=== PATIENT | female | born 1960 | race Caucasian/White ===

== ENCOUNTER 2016-07-28 06:00 | Day surgery (SDC) | payer MEDICARE ==
[2016-07-14 14:46] VITALS: BP 109/77
[~2016-07-28] VITALS: Ht 160 cm; Wt 143.0 kg
[~2016-07-28 06:00] MED LIST: ASPI-515 PO; BUPR-173 PO; CITA10TA4 PO; CLON-364 PO; FURO20TA3 PO; GABA600T2 PO; GLIM4TAB2 PO; HYDR25TA6 PO; INSU100V13 SC; LEVO50TA5 PO; LINA5TAB PO; LISI1TAB5; LISI2.5T PO; METF10002 PO; OXYC10TA6 PO; PENI500T; POTA20TA89 PO; ZOLP10TA; ZOLP10TA PO
[2016-07-28] MEDS ORDERED: LACTATED RINGERS 1,000 ML IV SCH (07:11)
[2016-07-28 07:16] VITALS: BP 109/77
[2016-07-28] MEDS ORDERED: MIDAZOLAM 1 MG/ML, 2ML ONE (08:10)
[2016-07-28] MEDS ORDERED: PROPOFOL 10 MG/ML, 20ML ONE (08:14)
== END 2016-07-28 10:30 | disposition home or self-care (01) ==
LOC: OR 06:00 → OUT 10:30
PROVIDERS: ATTEND Internal Medicine Gastroenterology
DX: D12.4 Benign neoplasm of descending colon (principal); D12.5 Benign neoplasm of sigmoid colon; K63.5 Polyp of colon; E66.01 Morbid (severe) obesity due to excess calories; Z68.43 Body mass index [BMI] 50.0-59.9, adult; E11.40 Type 2 diabetes mellitus with diabetic neuropathy, unspecified; Z85.42 Personal history of malignant neoplasm of other parts of uterus; Z85.038 Personal history of other malignant neoplasm of large intestine; G47.33 Obstructive sleep apnea (adult) (pediatric); I10 Essential (primary) hypertension; Z87.891 Personal history of nicotine dependence; F41.9 Anxiety disorder, unspecified; F32.9 Major depressive disorder, single episode, unspecified; Z90.710 Acquired absence of both cervix and uterus; Z90.49 Acquired absence of other specified parts of digestive tract; E03.9 Hypothyroidism, unspecified; Z79.4 Long term (current) use of insulin
CPT/HCPCS: 45385; 82962; 88305; J2250; J2704; J7120

== ENCOUNTER → 2016-09-30 | Outpatient (CLI) | payer MEDICARE ==
[2016-09-30 12:02] LABS: ASPARTATE AMINO TRANSFERASE 42 U/L (15-37); BLOOD UREA NITROGEN 23 mg/dL (7-18)
== END | disposition home or self-care (01) ==
LOC: STAR 10:51
PROVIDERS: ATTEND Internal Medicine Gastroenterology
DX: Z01.818 Encounter for other preprocedural examination (principal); D49.0 Neoplasm of unspecified behavior of digestive system
CPT/HCPCS: 36415; 80053

== ENCOUNTER 2016-10-08 09:08 | Day surgery (SDC) | payer MEDICARE ==
[~2016-10-08] VITALS: Ht 167.6 cm; Wt 136.0 kg
[2016-10-08] MEDS ORDERED: LACTATED RINGERS 1,000 ML IV SCH (09:27)
[2016-10-08 09:28] VITALS: BP 119/80
[2016-10-08] MEDS ORDERED: PROPOFOL 10 MG/ML, 50ML ONE (10:11)
[2016-10-08] MEDS ORDERED: ONDANSETRON 2MG/ML, 2ML ONE (10:11)
[2016-10-08] MEDS ORDERED: MIDAZOLAM 1 MG/ML, 2ML ONE (10:12)
[2016-10-08] MEDS ORDERED: PIPERACILLIN/TAZO/PMX 3.375GM 50 ML ONE (10:43)
== END 2016-10-08 14:10 | disposition home or self-care (01) ==
LOC: OUT 09:08
PROVIDERS: ATTEND Internal Medicine Gastroenterology
DX: K63.5 Polyp of colon (principal); K57.30 Diverticulosis of large intestine without perforation or abscess without bleeding; K64.8 Other hemorrhoids; K63.89 Other specified diseases of intestine; Z90.49 Acquired absence of other specified parts of digestive tract; I10 Essential (primary) hypertension; E11.9 Type 2 diabetes mellitus without complications; E66.01 Morbid (severe) obesity due to excess calories; E03.9 Hypothyroidism, unspecified; Z85.038 Personal history of other malignant neoplasm of large intestine; Z88.1 Allergy status to other antibiotic agents; F41.9 Anxiety disorder, unspecified; F32.9 Major depressive disorder, single episode, unspecified; G47.30 Sleep apnea, unspecified; Z87.891 Personal history of nicotine dependence; Z98.0 Intestinal bypass and anastomosis status
CPT/HCPCS: 45380; 45381; 45392; 82962; 88172; 88173; 88177; 88305; A4648; J2250; J2405; J2543; J2704; J7120

== ENCOUNTER 2017-03-30 13:30 | Emergency (ER) | payer MEDICARE ==
[~2017-03-30] VITALS: Ht 167.6 cm; Wt 143.0 kg
[2017-03-30 15:39] VITALS: BP 104/61
== END 2017-03-30 15:48 | disposition home or self-care (01) ==
LOC: ED 15:42
DX: F32.9 Major depressive disorder, single episode, unspecified (principal); F41.9 Anxiety disorder, unspecified
CPT/HCPCS: 99284

== ENCOUNTER → 2017-04-14 | Outpatient (CLI) | payer MEDICARE ==
[~2017-04-14] MED LIST changes: +LIDOCAINE 2%, 20ML ONE
== END | disposition home or self-care (01) ==
LOC: RAD 12:25
PROVIDERS: ATTEND Internal Medicine
DX: C54.1 Malignant neoplasm of endometrium (principal)
CPT/HCPCS: 36598; 76000; J1642; J3490

== ENCOUNTER 2017-06-17 07:53 | Day surgery (SDC) | payer MEDICARE ==
[~2017-06-17] VITALS: Ht 167.6 cm; Wt 134.2 kg
[~2017-06-17 07:53] MED LIST changes: -LIDOCAINE 2%, 20ML ONE
[2017-06-17 08:35] VITALS: BP 117/78
[2017-06-17] MEDS ORDERED: SODIUM CHLORIDE 0.9% 1,000 ML IV SCH (09:00)
[2017-06-17] MEDS ORDERED: LIDOCAINE 1%, 20ML ONE (09:08)
[2017-06-17] MEDS ORDERED: FENTANYL PF 100 MCG/2ML ONE (09:38)
[2017-06-17] MEDS ORDERED: NALOXONE 1 MG/ML, 2ML ONE (09:39)
[2017-06-17] MEDS ORDERED: MIDAZOLAM 1 MG/ML, 2ML ONE ×2 (09:39)
[2017-06-17] MEDS ORDERED: FLUMAZENIL 0.1 MG/1 ML, 5ML ONE (09:39)
== END 2017-06-17 13:15 ==
LOC: RAD 07:53 → OUT 13:15
PROVIDERS: ATTEND Internal Medicine
DX: Z45.2 Encounter for adjustment and management of vascular access device (principal); Z85.038 Personal history of other malignant neoplasm of large intestine; F41.9 Anxiety disorder, unspecified; F32.9 Major depressive disorder, single episode, unspecified; E11.9 Type 2 diabetes mellitus without complications; E78.00 Pure hypercholesterolemia, unspecified; I10 Essential (primary) hypertension; G47.30 Sleep apnea, unspecified; Z87.39 Personal history of other diseases of the musculoskeletal system and connective tissue; Z98.890 Other specified postprocedural states; Z90.710 Acquired absence of both cervix and uterus; Z90.49 Acquired absence of other specified parts of digestive tract; Z79.82 Long term (current) use of aspirin; Z87.891 Personal history of nicotine dependence
CPT/HCPCS: 36590; 77001; 99156; 99157; J2250; J3010; J3490; J2310

== ENCOUNTER → 2017-06-22 | Outpatient (CLI) | payer MEDICAID, MEDICARE ==
[~2017-06-22] MED LIST changes: +GADOBUTROL 10 MMOL/10 ML PFS ONE
== END | disposition home or self-care (01) ==
LOC: CFH 14:57
PROVIDERS: ATTEND Internal Medicine
DX: G93.89 Other specified disorders of brain (principal)
CPT/HCPCS: 70553; A9585

== ENCOUNTER 2019-04-02 09:51 | Emergency (ER) | payer MEDICARE ==
[~2019-04-02] VITALS: Ht 170.2 cm; Wt 136.0 kg
[~2019-04-02 09:51] MED LIST changes: -CLON-364 PO; +CLON0.5T11 PO; -GABA600T2 PO; +GABA600T7 PO; -GADOBUTROL 10 MMOL/10 ML PFS ONE; -GLIM4TAB2 PO; +GLIM4TAB4 PO; +LISI1TAB19; -LISI1TAB5
[2019-04-02 10:02] VITALS: BP 112/60
--- NOTE | 2019-04-02 10:06 | NUR ---
TO XRAY BY [facility]MAIR
== END 2019-04-02 10:50 | disposition home or self-care (01) ==
LOC: ED 10:40
DX: S42.211A Unspecified displaced fracture of surgical neck of right humerus, initial encounter for closed fracture (principal); M19.90 Unspecified osteoarthritis, unspecified site; F17.200 Nicotine dependence, unspecified, uncomplicated; W01.190A Fall on same level from slipping, tripping and stumbling with subsequent striking against furniture, initial encounter; Y93.89 Activity, other specified; Y92.009 Unspecified place in unspecified non-institutional (private) residence as the place of occurrence of the external cause; Y99.8 Other external cause status
CPT/HCPCS: 99283